=== PATIENT | female | born 1975 | race Caucasian/White ===

== ENCOUNTER 2017-05-02 08:41 | Emergency (ER) | payer MEDICAID ==
[~2017-05-02] VITALS: Wt 77.3 kg
[~2017-05-02 08:41] MED LIST: HYDR-3498 PO; IBUP800T25 PO
--- NOTE | 2017-05-02 09:15 | ERD ---
ER Documentation Chief Complaint Date/Time DATE: 05/02/17 TIME: 09:11 Chief Complaint RIGHT LEG PAIN AND SWELLING NON TRAUMTIC. HARD AREA. NO NUMBNESS X1 WK HPI This is a 41-year-old female presents the emergency department today for right leg pain and swelling in a "hard area along her vein for the past 2 weeks". Denies any fevers or chills. Denies any trauma. ROS All systems reviewed and are negative except as per history of present illness. Medications Home Meds Active Scripts Naproxen* (Naprosyn*) 500 Mg Tablet, 500 MG PO BID Y for PAIN AND/OR INFLAMMATION, #30 TAB Prov:MARY HOPE PA-C 05/02/17 Hydrocodone Bit-Acetaminophen* ([place]*) 5-325 Mg Tab, 1 TAB PO Q6 Y for PAIN, # 10 TAB Prov:YRN RIVERS PA-C 07/19/15 Ibuprofen* (Motrin*) 800 Mg Tab, 800 MG PO Q6H Y for PAIN AND OR ELEVATED TEMP, #30 TAB Prov:YRN RIVERS PA-C 07/19/15 Allergies Allergies: Coded Allergies: No Known Allergy (Unverified , 01/13/15) PMhx/Soc History of Surgery: No Anesthesia Reaction: No Hx Neurological Disorder: No Hx Respiratory Disorders: Yes (asthma) Hx Cardiac Disorders: No Hx Psychiatric Problems: No Hx Miscellaneous Medical Probl: No Hx Alcohol Use: No Hx Substance Use: No Hx Tobacco Use: No Smoking Status: Never smoker Physical Exam Vitals Vital Signs Date Time Temp Pulse Resp B/P Pulse Ox O2 Delivery O2 Flow Rate FiO2 05/02/17 08:44 98.3 70 21 134/75 97 Physical Exam Const: No acute distress Head: Atraumatic Eyes: Normal Conjunctiva ENT: Normal External Ears, Nose and Mouth. Neck: Full range of motion..~ No meningismus. Resp: Clear to auscultation bilaterally Cardio: Regular rate and rhythm, no murmurs Abd: Soft, non tender, non distended. Normal bowel sounds Skin: No petechiae or rashes Back: No midline or flank tenderness Ext: Right leg evidence of multiple varicose veins on calf and inner thigh with firmness and localized erythema. Pulses 2+. Neur: Awake and alert Psych: Normal Mood and Affect Results 24 hrs Current Medications Medications (Trade) Dose Ordered Sig/Sadaf Route PRN Reason Start Time Stop Time Status Last Admin Dose Admin Acetaminophen/ Hydrocodone Bitart ([place] (5/325)) 1 tab ONCE ONCE PO 05/02/17 09:30 05/02/17 09:31 DC 05/02/17 09:11 DIAGNOSTIC IMAGING REPORT Patient: RIDDHI PACKER : 1975 Age: 41 Sex: F MR #: [id number] DOS: 05/02/17 0000 Ordering MD: MARY HOPE PA-C Location: [facility] Room/Bed: PROCEDURE: US DVT. CLINICAL INDICATION: Right lower extremity pain and swelling. TECHNIQUE: Multiple longitudinal and transverse images of the right lower extremity veins were obtained with ruelas scale and color Doppler imaging. 2D grayscale measurements with compression, color Doppler flow, and augmentation was performed. The calf veins were interrogated as well. COMPARISON: No prior studies are available for comparison. FINDINGS: The right common femoral, superficial femoral and popliteal veins are normally compressible throughout. Color flow demonstrates normal filling of the vessel. Normal waveforms are visualized and there is normal response to augmentation. The superficial greater saphenous vein in the distal thigh and calf. Noncompressible consistent with superficial thrombophlebitis IMPRESSION: 1. No evidence of a deep vein thrombosis involving the right lower extremity. 2. Superficial thrombophlebitis in the right greater saphenous vein in the distal thigh and calf. RPTAT: [facility] Physician Antonette Date Time Electronically viewed and signed by Physician Antonette on 05/02/2017 09: 58 JH/ CC: MARY HOPE PA-C Procedures/[facility] This 41-year-old female presents the emergency department today complaining of right leg pain and swelling for the past 2 weeks. On physical exam patient has evidence of varicose veins with some firmness and localized erythema. Patient did not seem to have evidence of this on her left leg and therefore I did obtain a Doppler ultrasound to rule out DVT Ultrasound shows no evidence of a deep vein thrombosis involving the right lower extremity. There is superficial thrombophlebitis in the right greater saphenous vein in the distal thigh and calf. Patient symptoms at this time is consistent with superficial thrombophlebitis. There is no evidence of cellulitis at this time. Low suspicion for sepsis. Low suspicion for acute fracture. Patient was given Whittier here in the emergency department. She will begin a prescription for Naprosyn for home. She is instructed to use compression stockings and follow-up with a primary care physician for referral to vascular specialist. Patient was given a list of resources. At this time the patient is stable for discharge and outpatient management. Patient should follow up with their PCP in the next 1-2 days. They may return to the emergency department sooner for any persistent or worsening of symptoms. Patient understood and agreed with the plan. Departure Diagnosis: Primary Impression: Thrombophlebitis Condition: Fair MARY HOPE PA-C May 02, 2017 09:15
[2017-05-02] MEDS ORDERED: HYDROCODONE/APAP (5/325) TAB PO ONE (09:30)
--- NOTE | 2017-05-02 09:58 | RADRPT ---
PROCEDURE: US DVT. CLINICAL INDICATION: Right lower extremity pain and swelling. TECHNIQUE: Multiple longitudinal and transverse images of the right lower extremity veins were obt ained with ruelas scale and color Doppler imaging. 2D grayscale measurements with compression, color Doppler flow, and augmentation was performed. The calf veins were interrogated as well. COMPARISON: No prior studies are available for comparison. FINDINGS: The right common femoral, superficial femoral and popliteal veins are normally compressible througho ut. Color flow demonstrates normal filling of the vessel. Normal waveforms are visualized and ther e is normal response to augmentation. The superficial greater saphenous vein in the distal thigh and calf. Noncompressible consistent wit h superficial thrombophlebitis IMPRESSION: 1. No evidence of a deep vein thrombosis involving the right lower extremity. 2. Superficial thrombophlebitis in the right greater saphenous vein in the distal thigh and calf. RPTAT: [facility] Physician Antonette Date Time Electronically viewed and signed by Physician Antonette on 05/02/2017 09:58 /
[2017-05-02] MEDS ORDERED: NAPR-260 PO (10:15)
== END 2017-05-02 10:25 | disposition home or self-care (01) ==
LOC: FTE 08:41
DX: I80.291 Phlebitis and thrombophlebitis of other deep vessels of right lower extremity (principal); J45.909 Unspecified asthma, uncomplicated
CPT/HCPCS: 93971; Z7610